=== PATIENT | male | born 1950 | race Caucasian/White ===

== ENCOUNTER 2023-04-09 15:51 | Outpatient (RCR) | payer MEDICARE, OTHER, SELFPAY | END 2023-04-09 23:59 | disposition home or self-care (01) | LOC: RPT 15:51 | PROVIDERS: ATTENDING PHYSICIAN Pain Medicine Interventional Pain Medicine; FAMILY PHYSICIAN Internal Medicine | DX: M54.16 Radiculopathy, lumbar region (principal); Z73.6 Limitation of activities due to disability; R26.89 Other abnormalities of gait and mobility | CPT/HCPCS: 97010; 97110; 97162 ==

== ENCOUNTER 2023-04-12 14:13 | Outpatient (RCR) | payer MEDICARE, OTHER, SELFPAY | END 2023-04-12 23:59 | disposition home or self-care (01) | LOC: RPT 14:13 | PROVIDERS: ATTENDING PHYSICIAN Pain Medicine Interventional Pain Medicine; FAMILY PHYSICIAN Internal Medicine | DX: M54.16 Radiculopathy, lumbar region (principal); Z73.6 Limitation of activities due to disability | CPT/HCPCS: 97010; 97110 ==

== ENCOUNTER 2024-03-19 06:24 | Day surgery (SDC) | payer MEDICARE, OTHER, SELFPAY ==
[2024-02-28 13:12] VITALS: BMI 40.0
[2024-02-28 14:29] LABS: Hematocrit 39.9 % (39.0-52.0); Hemoglobin 12.9 g/dL (13.0-18.0); Mean Corp Hgb Conc. 32.3 g/dL (33.0-37.0); Mean Corpuscular Hgb 29.7 pg (27.0-31.0); Mean Corpuscular Volume 91.7 fL (80.0-94.0); Mean Platelet Volume 9.1 fL (7.4-10.4); Platelet Count 229 10^3/uL (130-400); Red Blood Cell Count 4.35 10^6/uL (4.70-6.10); Red Cell Dist. Width 13.1 % (11.5-14.5); White Blood Cell Count 6.9 10^3/uL (4.8-10.8)
[2024-02-28 14:44] LABS: ALT (SGPT) 21 U/L (0-50); AST (SGOT) 24 U/L (17-59); Albumin 4.5 g/dl (3.5-5.0); Alkaline Phosphatase 78 U/L (38-126); Blood Urea Nitrogen 26 mg/dl (9-20); Calcium 9.5 mg/dl (8.4-10.2); Carbon Dioxide 26 mmol/L (22-30); Chloride 102 mmol/L (98-107); Estimated Creatinine Clearance > 125 ml/min; Glucose 97 mg/dl (70-99); Potassium 4.8 mmol/L (3.5-5.1); Sodium 137 mmol/L (135-145); Total Bilirubin 0.3 mg/dl (0.2-1.3); eGFR > 60.00
[2024-02-28 15:03] LABS: Glycohemoglobin (HgbA1c) 6.1 % (4.0-5.6)
[2024-03-16 14:10] VITALS: BMI 40.0
[2024-03-19] VITALS (17 sets, daily range): BP systolic 118–173; BP diastolic 69–86; PULSE 85
[2024-03-19] MEDS: TYLENOL 650 MG PO ×4 (06:14→20:34)
[2024-03-19] MEDS: MOBIC 15 MG PO (06:16)
[2024-03-19] MEDS: NORMOSOL-R/PLASMALYTE-A 1000 IV ×2 (06:40→14:17)
--- NOTE | 2024-03-19 07:27 | W.DS.TRANS ---
DC Summary - [facility]
-
Discharge Instructions:
Discharge Diagnosis/Procedures L TKA Dr. Lyon 03/19/24
Diet As tolerated
Activity With Walker
Driving Restrictions No driving
Bathing Restrictions OK to Shower
Instructions:
Stand-Alone Forms: Total Hip/Knee Replacement D/C
Changes to Home Medications: Yes
Discharge Medications:
DC Medications w/original date entered in [employer]
ezetimibe 10 mg tablet 10 mg PO DAILY 02/16/21
lisinopril 5 mg tablet 5 mg PO DAILY 02/16/21
multivitamin 1 ea PO DAILY 02/16/21
aspirin 81 mg chewable tablet 81 mg PO HS 01/02/22
escitalopram oxalate 20 mg tablet (Lexapro) 20 mg PO DAILY 01/02/22
amlodipine 2.5 mg tablet 2.5 mg PO HS 03/12/24
coQ10 (ubiquinol) 100 mg capsule 100 mg PO HS 03/12/24
famotidine 40 mg tablet 40 mg PO DAILY PRN gerd 03/12/24
fluticasone propionate 50 mcg/actuation nasal spray,suspension 2 spray intranasal DAILY 03/12/24
mupirocin 2 % topical ointment 1 applic topical BID 03/12/24
tamsulosin 0.4 mg capsule 0.8 mg PO DAILY 03/12/24
Saccharomyces boulardii 250 mg capsule (Florastor) 250 mg PO BID #1 cap 03/19/24
acetaminophen 650 mg tablet,extended release 1,300 mg (2 x 650 mg) PO QID #0 tabs 03/19/24
aspirin 325 mg tablet 325 mg PO DAILY blood clot prevention #1 tab 03/19/24
cefadroxil 500 mg capsule 500 mg PO BID infection prevention #14 caps 03/19/24
celecoxib 100 mg capsule 100 mg PO BID Anti-inflammatory #14 caps 03/19/24
dexamethasone 4 mg tablet 4 mg PO BID inflammation #6 tabs 03/19/24
docusate sodium 100 mg capsule (Colace) 100 mg PO BID #0 caps 03/19/24
magnesium hydroxide 400 mg/5 mL oral suspension (Milk of Magnesia) 30 ml PO HS PRN Constipation #1 mL 03/19/24
ondansetron 4 mg disintegrating tablet 4 mg PO Q6H PRN n/v #20 tabs 03/19/24
oxycodone 5 mg tablet 5 mg PO Q6H PRN 1 tab moderate pain, 2 tabs severe pain #30 tabs 03/19/24
sennosides 8.6 mg tablet (Senokot) 17.2 mg (2 x 8.6 mg) PO BID laxative #2 tabs 03/19/24
Home Medication Changes
Saccharomyces boulardii 250 mg capsule (Florastor) 250 mg PO BID #1 cap 03/19/24
acetaminophen 650 mg tablet,extended release 1,300 mg (2 x 650 mg) PO QID #0 tabs 03/19/24
aspirin 325 mg tablet 325 mg PO DAILY blood clot prevention #1 tab 03/19/24
cefadroxil 500 mg capsule 500 mg PO BID infection prevention #14 caps 03/19/24
celecoxib 100 mg capsule 100 mg PO BID Anti-inflammatory #14 caps 03/19/24
dexamethasone 4 mg tablet 4 mg PO BID inflammation #6 tabs 03/19/24
docusate sodium 100 mg capsule (Colace) 100 mg PO BID #0 caps 03/19/24
magnesium hydroxide 400 mg/5 mL oral suspension (Milk of Magnesia) 30 ml PO HS PRN Constipation #1 mL 03/19/24
ondansetron 4 mg disintegrating tablet 4 mg PO Q6H PRN n/v #20 tabs 03/19/24
oxycodone 5 mg tablet 5 mg PO Q6H PRN 1 tab moderate pain, 2 tabs severe pain #30 tabs 03/19/24
sennosides 8.6 mg tablet (Senokot) 17.2 mg (2 x 8.6 mg) PO BID laxative #2 tabs 03/19/24
Pending Results: No
[2024-03-19] MEDS: DILAUDID 0.5 MG IV ×5 (09:32→23:01)
[2024-03-19] MEDS: ROXICODONE 5 MG PO ×2 (10:00→16:58)
[2024-03-19] MEDS: ULTRAM PO (10:03)
[2024-03-19] MEDS: LEXAPRO PO (11:12)
[2024-03-19] MEDS: TORADOL 15 MG IV ×2 (11:20→20:34)
[2024-03-19] MEDS: ZETIA 10 MG PO (12:06)
[2024-03-19] MEDS: ZESTRIL PO (12:07)
[2024-03-19] MEDS: ULTRAM 50 MG PO ×3 (12:09→21:03)
[2024-03-19] MEDS: ANCEF 5 IV ×2 (14:45→23:01)
[2024-03-19] MEDS: ASPIRIN 325 MG PO (17:14)
[2024-03-19] MEDS: DECADRON 6 MG IV (20:33)
[2024-03-19] MEDS: COLACE 100 MG PO (20:34)
[2024-03-19] MEDS: SENOKOT 17.2 MG PO (20:34)
[2024-03-19] MEDS: BACTROBAN 2% OINTMENT 1 APPLIC NASAL (20:40)
[2024-03-19] MEDS: ROXICODONE 10 MG PO (21:48)
[2024-03-19] MEDS: NORVASC 2.5 MG PO (21:49)
[2024-03-19] MEDS: NEURONTIN 300 MG PO (21:49)
[2024-03-19] MEDS: FLOMAX 0.8 MG PO (21:49)
[2024-03-20] MEDS: TYLENOL PO ×2 (00:09→04:54)
--- NOTE | 2024-03-20 00:53 | PTCARENOTE ---
Patient ambulated w staff assist x1 and RW to toilet to void, pt experienced some urge incontinence on the way. Pt was able to ambulate back to bed but was then in 8/10 pain and was medicated accordingly. Assessment ongoing.
[2024-03-20 03:15] VITALS: BP 104/49
[2024-03-20] MEDS: ROXICODONE 5 MG PO (05:48)
[2024-03-20 07:00] VITALS: BP 168/84
--- NOTE | 2024-03-20 07:22 | W.PN.ORTHO ---
Today's Communication / Plan
-
Plan for discharge home today if stable and outpatient PT on Saturday
Assessment
.
Distal Motor Intact: Yes
Dressing:
Clean, dry and intact.
Assessment:
Stable postop
Plan
.
Surgery / Date: 03/19/2024
DVT Prophylaxis: Aspirin
Activity:
Out of bed.
PT/OT
Discharge Plan: Home w/ Outpatient PT
Subjective
.
.:
Patient resting comfortably. Was OOB last night. Required dilaudid last night
Vital Signs and Labs
.
Vital Signs and Labs:
Lab Results
02/28/24 12:47
02/28/24 12:47
Temp Pulse Resp BP Pulse Ox
97.7 F 71 16 104/49 99
03/20/24 03:15 03/20/24 03:15 03/20/24 03:15 03/20/24 03:15 03/20/24 03:15
Physical Exam
-
Pulm: nonlabored
CV: regular
LLE: dressing CDI. NVI distally. Calf soft. Able to fully extend and SLR
[2024-03-20] MEDS: ULTRAM 50 MG PO ×2 (08:22→12:38)
[2024-03-20] MEDS: ASPIRIN 325 MG PO (08:26)
[2024-03-20] MEDS: TYLENOL 650 MG PO ×2 (08:26→12:38)
[2024-03-20] MEDS: ZETIA 10 MG PO (08:26)
[2024-03-20] MEDS: SENOKOT 17.2 MG PO (08:26)
[2024-03-20] MEDS: LEXAPRO 20 MG PO (08:26)
[2024-03-20] MEDS: BACTROBAN 2% OINTMENT 1 APPLIC NASAL (08:27)
[2024-03-20] MEDS: COLACE 100 MG PO (08:27)
[2024-03-20] MEDS: TORADOL 15 MG IV (08:27)
[2024-03-20] MEDS: DECADRON 6 MG IV (08:27)
[2024-03-20] MEDS: ZESTRIL 2.5 MG PO (08:28)
[2024-03-20] MEDS: ROXICODONE 10 MG PO ×2 (10:02→14:02)
--- NOTE | 2024-03-20 10:18 | W.PN.ORTHO ---
Today's Communication / Plan
-
d/c
Assessment
.
Distal Motor Intact: Yes
Dressing:
Clean, dry and intact.
Plan
.
Surgery / Date: Tamie Lyon 03/19/24
DVT Prophylaxis: Aspirin
Activity:
Out of bed.
PT/OT
Discharge Plan: Home w/ Outpatient PT
Subjective
.
.:
Patient resting comfortably.
Vital Signs and Labs
.
Vital Signs and Labs:
Lab Results
02/28/24 12:47
02/28/24 12:47
Temp Pulse Resp BP Pulse Ox
97.7 F 80 18 168/84 98
03/20/24 07:00 03/20/24 08:28 03/20/24 07:00 03/20/24 08:28 03/20/24 07:00
Physical Exam
-
HEENT: No pallor, cyanosis, or jaundice. Throat clear.
NECK: Supple. No JVD.
RESPIRATORY: Lungs clear to auscultation.
CVS: S1, S2 normal. RRR.� No murmur, rub or gallop.
ABDOMEN: Soft, non-tender. No distension. BS+/normal.
EXTREMITIES: strength equal, no calf pain with palpation
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 No focal deficits. nursing service administrator grossly intact
[2024-03-20 10:34] VITALS: O2SAT 95
--- NOTE | 2024-03-20 10:58 | CM ---
Addendum entered by Edith Herr 03/20/24 11:01:
IMM explained signed. In chart
Original Note:
Patient seen at bedside.
IA Completed. CM consult completed.
Lives in a multi story home, 1st floor set up
PLOF: Independent, no device
DME: Cane, walkers, shower chair
Denies insecurities
[place] in past
Patient has appt with PT outpatient therapy at [facility] in [place]
PCP: Fernandez Bustamante
Pharmacy: [address]
PLAN: Home with outpatient PT at [facility]
to transport
[2024-03-20 11:13] VITALS: BP 130/75
== END 2024-03-20 14:22 | disposition home or self-care (01) ==
LOC: SDS 06:24
PROVIDERS: ATTENDING PHYSICIAN Orthopaedic Surgery; FAMILY PHYSICIAN Internal Medicine; REFERRING PHYSICIAN Internal Medicine Interventional Cardiology
DX: M17.12 Unilateral primary osteoarthritis, left knee (principal)
CPT/HCPCS: 27447; C1713; C1776; 36415; 73560; 80053; 83036; 85027; 87070; 97110; 97116; 97162; 97166; 97530; 97535

== ENCOUNTER 2024-05-24 11:05 | Emergency (ER) | payer MEDICARE, OTHER, SELFPAY ==
[2024-05-24 11:08] VITALS: BP 159/74
--- NOTE | 2024-05-24 13:07 | ED.GENMED ---
History of Present Illness
General
Chief Complaint: Skin Problem
Source: patient
Time Seen by Provider: 05/24/24 11:53
History of Present Illness
History of Present Illness:
73-year-old male with past medical history of hypertension, hyperlipidemia, BPH presenting to the emergency department for evaluation of left second toe pain, erythema and drainage that has been ongoing for the last 5 days. was concerned about
infection in the toe potentially spreading to the knee as patient had a knee replacement done a few years ago. Patient has not had any fevers, does not recall any trauma, no known history of neuropathy. Patient has seen Dr. Miguel from podiatry
in the past but nothing recently. No other concerns presently.
Past History
Past History
ED Past Medical History: HTN, Hypercholesterolemia, NIDDM and Other (Degenerative disc disease and chronic back pain)
ED Past Surgical History: Orthopedic
Social History
Tobacco: Former smoker
Alcohol: None
Drug: None
Personal:
Living: with family
Review of Systems
Review of Systems
All Other Systems: ROS reviewed and negative except as documented in HPI and ROS
Phy Exam
Physical Exam
Physical Exam:
GENERAL: Alert , in no apparent distress
EYE: conjunctiva clear
Head: Normocephalic atraumatic
NECK: Supple,
ENT: mmm.
LUNGS: no acute respiratory distress
NEUROLOGICAL: Alert and oriented
SKIN: Warm and dry, small callus/blister with skin opening at the distalmost phalanx, dried, no bleeding, surrounded by erythema extending slightly more proximally into the IP joint
MUSCULOSKELETAL: well perfused. mild skin changes likely 2/2 PVD. Easily palpable pedal/tibial pulse. CR < 2 sec. sensation grossly intact to light touch
PSYCH: Normal and appropriate interaction.
Scores
Heart Failure Risk
Heart Failure Risk Score: Not Applicable
Heart Score for Chest Pain Patients
STEMI patient?: Not applicable
Withdrawal Assessment of Alcohol
Withdrawal Assessment Completed?: Not applicable
Course
Orders/Labs/Results
Orders:
Orders
05/24/24 11:55
CR Foot - Left Min 3 Views Urgent
Comment:
Reason For Exam: toe infection
05/24/24 13:08
CRP [C-Reactive Protein] Urgent
Complete Blood Count/With Diff Urgent
Comprehensive Metabolic Panel Urgent
ESR [Erythrocyte Sed Rate] Urgent
Abnormal Lab Results
05/24/24
13:08
RBC 4.68 L 10^6/uL
(4.70-6.10)
MCHC 31.3 L g/dL
(33.0-37.0)
RDW 15.7 H %
(11.5-14.5)
Absolute Monos (auto) 1.0 H 10^3/uL
(0.1-0.6)
Monocytes % 13.5 H %
(1.7-9.3)
BUN 24 H mg/dl
(9-20)
Creatinine 0.6 L mg/dL
(0.7-1.3)
C-Reactive Protein 16.60 H mg/L
(0.0-10.00)
05/24/24 13:08
05/24/24 13:08
Vital Signs
Initial and Last Documented VS:
Initial Vital Signs
Temp Pulse Resp BP Pulse Ox
97.4 F 86 17 159/74 97
05/24/24 11:08 05/24/24 11:08 05/24/24 11:08 05/24/24 11:08 05/24/24 11:08
Last Documented Vital Signs
Temp Pulse Resp BP Pulse Ox
97.4 F 82 18 168/74 98
05/24/24 11:08 05/24/24 13:18 05/24/24 13:18 05/24/24 13:18 05/24/24 13:18
MDM/Problems Addressed
Differential Diagnosis Includes:
Cellulitis, osteomyelitis, no history of diabetes, peripheral vascular disease
MDM/Problems Addressed:
73-year-old male presenting to the ER for evaluation of wound to the left second great toe, mild erythema and reported drainage at home but presently wound appears dry. Extremities warm and well perfused, neurovascularly intact there does appear to
be a cellulitis which could be from the skin opening. Will check labs, x-ray with disposition pending. If patient is going to be dispositioned home will send information over to podiatry to help expedite patient's outpatient visit.
*Radiology
Radiology exam reviewed: preliminary read by ED provider (No evidence for osteo)
*Pulse Oximetry
Patient hypoxic: no
*Critical Care Note
Total Time (30-74mins, 75-104mins- exclusive of procedures): Not Applicable
Patient Management
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
Escalation/DeEscalation of care consider admission/obs:
Pictures of patient's toe were sent via [employer] text to Dr. Miguel, workup discussed and he is in agreement with close outpatient follow-up in office this week. Prescription for doxycycline sent to patient's pharmacy. and patient are aware of
return precautions to the ER.
ED Attending Note
-
Portions of this chart may have been created with voice recognition software.� Occasional wrong word or��sound alike� substitutions may have occurred due to the inherent limitations of voice recognition software.
Discharge Plan
Departure
Patient Disposition: Home (Routine Discharge)
Date of Disposition: 05/24/24
Time of Disposition: 13:46
Patient with high blood pressure during this ER visit?: Yes
Discharge Problem:
Cellulitis of second toe of left foot
Instructions: Cellulitis (Skin Infection), Adult (DC)
Prescriptions:
New
doxycycline hyclate 100 mg tablet
100 mg PO BID 10 Days Qty: 20 0RF
No Action
multivitamin 1 EACH tablet
1 ea PO DAILY
lisinopril 5 MG tablet
5 mg PO DAILY
ezetimibe 10 MG tablet
10 mg PO DAILY
aspirin 81 mg Tablet,Chewable
81 mg PO HS
escitalopram oxalate [Lexapro] 20 mg Tablet
20 mg PO DAILY
famotidine 40 mg Tablet
40 mg PO DAILY PRN (Reason: gerd)
amlodipine 2.5 mg Tablet
2.5 mg PO HS
tamsulosin 0.4 mg Capsule
0.8 mg PO DAILY
fluticasone propionate 50 mcg/actuation [place],Suspension
2 spray INTRANASAL DAILY
coQ10 (ubiquinol) 100 mg Capsule
100 mg PO HS
mupirocin 2 % Ointment
1 applic TOPICAL BID
sennosides [Senokot] 8.6 mg tablet
17.2 mg PO BID Qty: 2 0RF
aspirin 325 mg tablet
325 mg PO DAILY Qty: 1 0RF
Rx Instructions:
Take with food
cefadroxil 500 mg capsule
500 mg PO BID Qty: 14 0RF
Rx Instructions:
*Take w/ food
*Take w/ probiotic
*POST-OP USE
magnesium hydroxide [Milk of Magnesia] 400 mg/5 mL suspension
30 ml PO HS PRN (Reason: Constipation) Qty: 1 0RF
dexamethasone 4 mg tablet
4 mg PO BID Qty: 6 0RF
Rx Instructions:
take with food
post-op use only
celecoxib 100 mg capsule
100 mg PO BID Qty: 14 0RF
Rx Instructions:
take with food
ondansetron [ondansetron] 4 mg tablet,disintegrating
4 mg PO Q6H PRN (Reason: n/v) Qty: 20 0RF
Rx Instructions:
take 1/2h b/f pain med if recurrent nausea
allow to dissolve in mouth w/o water
oxycodone 5 mg tablet
5 mg PO Q6H PRN (Reason: 1 tab moderate pain, 2 tabs severe pain) Qty: 30 0RF
Rx Instructions:
Ongoing therapy
Saccharomyces boulardii [Florastor] 250 mg capsule
250 mg PO BID Qty: 1 0RF
acetaminophen 650 mg Tablet Extended Release
1,300 mg PO QID Qty: 0 0RF
docusate sodium [Colace] 100 mg Capsule
100 mg PO BID Qty: 0 0RF
Referrals:
Fernandez Bustamanet MD [Family Provider] -
Interventions
Interventions:
*Risk Screen - Suicide Last Done: 05/24/24 11:09
*General Assessment Last Done: 05/24/24 11:09
*Neglect/Abuse Screening Last Done: 05/24/24 11:09
*ED COVID-19 Vaccine History Last Done: 05/24/24 11:09
*Nursing Disposition Last Done: 05/24/24 14:10
ED-Skin Assessment Last Done: 05/24/24 11:51
Discharge Date and Time
Discharge Date/Time: 05/24/24 14:15
Print Language: BOLIVIAN
[2024-05-24 13:18] VITALS: BP 168/74
[2024-05-24 13:21] LABS: % Basophils 0.3 % (0-2); % Eosinophils 4.9 % (0-6); % Immature Granulocytes 0.3 % (0-0.5); % Lymphocytes 22.2 % (20.5-51.1); % Monocytes 13.5 % (1.7-9.3); % Neutrophils 58.8 % (42.2-75.2); Absolute Eosinophils 0.4 10^3/uL (0-0.7); Absolute Lymphocytes 1.6 10^3/uL (1.2-3.4); Absolute Neutrophils 4.2 10^3/uL (1.4-6.5); Hematocrit 41.5 % (39.0-52.0); Mean Corp Hgb Conc. 31.3 g/dL (33.0-37.0); Mean Corpuscular Hgb 27.8 pg (27.0-31.0); Mean Corpuscular Volume 88.7 fL (80.0-94.0); Mean Platelet Volume 8.9 fL (7.4-10.4); Nucleated Red Blood Cells % 0 % (-); Platelet Count 223 10^3/uL (130-400); Red Blood Cell Count 4.68 10^6/uL (4.70-6.10); Red Cell Dist. Width 15.7 % (11.5-14.5); White Blood Cell Count 7.1 10^3/uL (4.8-10.8)
[2024-05-24 13:33] LABS: Erythrocyte Sed Rate 7 mm/hour (0-20)
[2024-05-24 13:43] LABS: ALT (SGPT) 22 U/L (0-50); AST (SGOT) 26 U/L (17-59); Albumin 4.6 g/dl (3.5-5.0); Alkaline Phosphatase 95 U/L (38-126); Blood Urea Nitrogen 24 mg/dl (9-20); Calcium 10.1 mg/dl (8.4-10.2); Carbon Dioxide 25 mmol/L (22-30); Chloride 104 mmol/L (98-107); Glucose 92 mg/dl (70-99); Potassium 4.7 mmol/L (3.5-5.1); Sodium 137 mmol/L (135-145); Total Bilirubin 0.7 mg/dl (0.2-1.3); Total Protein 7.5 g/dl (6.3-8.2); eGFR > 60.00
== END 2024-05-24 14:15 | disposition home or self-care (01) ==
LOC: EMR 11:05
PROVIDERS: Physician Assistant Medical; EMERGENCY PHYSICIAN Emergency Medicine; FAMILY PHYSICIAN Internal Medicine
DX: L03.032 Cellulitis of left toe (principal); I10 Essential (primary) hypertension; E11.9 Type 2 diabetes mellitus without complications; E78.00 Pure hypercholesterolemia, unspecified; M51.35 Other intervertebral disc degeneration, thoracolumbar region; G89.29 Other chronic pain; N40.0 Benign prostatic hyperplasia without lower urinary tract symptoms; Z87.891 Personal history of nicotine dependence; Z79.82 Long term (current) use of aspirin; Z88.1 Allergy status to other antibiotic agents; Z88.2 Allergy status to sulfonamides; Z88.8 Allergy status to other drugs, medicaments and biological substances
CPT/HCPCS: 99283; 73630; 80053; 85025; 85652; 86140

== ENCOUNTER 2024-08-17 06:15 | Day surgery (SDC) | payer MEDICARE, OTHER, SELFPAY ==
[2024-08-17] VITALS (9 sets, daily range): BP systolic 106–148; BP diastolic 50–79; BMI 37.3
[2024-08-17] MEDS: NORMOSOL-R/PLASMALYTE-A 1000 IV (09:10)
== END 2024-08-17 13:07 | disposition home or self-care (01) ==
LOC: SDS 06:15
PROVIDERS: ATTENDING PHYSICIAN Student in an Organized Health Care Education/Training Program
DX: M86.8X7 Other osteomyelitis, ankle and foot (principal); M20.12 Hallux valgus (acquired), left foot; M79.672 Pain in left foot
CPT/HCPCS: 28825; 88305; 88311